=== PATIENT | female | born 1965 | race Caucasian/White ===

== ENCOUNTER → 2019-12-14 15:01 | Outpatient (BNVA) | payer MEDICARE, MEDICAID, SELFPAY | PROVIDERS: Family Provider Nurse Practitioner Family; PCP Nurse Practitioner Family; Visit Provider Orthopaedic Surgery | DX: M47.896 Other spondylosis, lumbar region (principal); M16.11 Unilateral primary osteoarthritis, right hip | CPT/HCPCS: 72100; 73502 ==

== ENCOUNTER 2019-12-27 17:08 | Outpatient (CLI) | payer MEDICARE, MEDICAID, SELFPAY ==
--- NOTE | 2019-12-27 17:30 | MR_ITS ---
WS: [id number] MRI LUMBAR SPINE NONCONTRAST HISTORY: back pain COMPARISON: None available. TECHNIQUE: Sagittal and axial multisequence imaging is submitted. Mild RIGHT convex curvature thoracic spine and LEFT convex curvature lumbar spine. L3 posterior subluxation by 2 mm. No acute marrow edema or fracture. Mild disc desiccation at L4-5 and L5-S1. Conus terminates normally at L1-2 disc level. L1-L2: Mild annular disc bulging. No stenosis. L2-L3: Moderate diffuse annular disc bulging and facet arthropathy. Small amount of fluid in the face t joints. No significant stenosis. L3-L4: Diffuse annular disc bulging with a RIGHT central and subarticular recess disc protrusion whic h is moderate. Disc protrusion is contacting the RIGHT L3 and L4 nerve roots. Associated annular fiss ure in the disc protrusion. Mild facet arthropathy bilaterally. L4-L5: Diffuse annular disc bulging and osteophytic ridging. Mild facet and ligamentum flavum arthrop athy. Vertebral body osteophytes causing mild subarticular foraminal stenosis. L5-S1: Annular disc bulging and osteophytic ridging. Small disc osteophyte contacts the RIGHT S1 nerv e root but does not displace it. Paravertebral soft tissues are normal. MR/MR lumbar spine wo con* [id number] IMPRESSION: 1. Moderate-sized RIGHT subarticular and foraminal disc protrusion at L3-4 wit h contact on the RIGHT L3 and L4 nerve roots. 2. Small disc osteophyte complex minimally contacts the RIGHT S1 nerve root. 3. Mild subarticular recess stenosis at L4-5.
== END 2019-12-27 17:09 | disposition home or self-care (01) ==
PROVIDERS: Family Provider Nurse Practitioner Family; PCP Nurse Practitioner Family; Visit Provider Orthopaedic Surgery
DX: M51.26 Other intervertebral disc displacement, lumbar region (principal); M25.78 Osteophyte, vertebrae; M48.061 Spinal stenosis, lumbar region without neurogenic claudication; M54.5 Low back pain
CPT/HCPCS: 72148

== ENCOUNTER → 2020-01-17 14:18 | Outpatient (BNVA) | payer MEDICARE, MEDICAID, SELFPAY | PROVIDERS: Family Provider Nurse Practitioner Family; PCP Nurse Practitioner Family; Visit Provider Nurse Practitioner Family | DX: N39.41 Urge incontinence (principal); Z86.69 Personal history of other diseases of the nervous system and sense organs | CPT/HCPCS: 81001 ==

== ENCOUNTER → 2020-01-25 07:56 | Outpatient (BNVA) | payer MEDICARE, MEDICAID, SELFPAY | PROVIDERS: Family Provider Nurse Practitioner Family; PCP Nurse Practitioner Family; Visit Provider Psychiatry & Neurology Psychiatry | DX: F17.210 Nicotine dependence, cigarettes, uncomplicated (principal); F33.0 Major depressive disorder, recurrent, mild | CPT/HCPCS: 99214 ==

== ENCOUNTER 2020-04-19 15:23 | Outpatient (CLI) | payer MEDICARE, MEDICAID, SELFPAY ==
--- NOTE | 2020-04-19 15:45 | XR_ITS ---
WS: [id number] LATERAL LUMBAR SPINE: 3 view. Lateral radiographs are performed in upright neutral, flexion and extension to the patient's toleranc e. HISTORY: Low back pain COMPARISON: 12/14/2019 L2 and L3 retrolisthesis by 3 mm. With flexion and extension there is no significant instability. Mod erate disc space narrowing at L3-4 and L4-5. No fractures. XR/XR lumbar spine f/e only [id number] IMPRESSION: No lumbar spine instability.
== END 2020-04-19 15:24 | disposition home or self-care (01) ==
LOC: RADWPI 15:27
PROVIDERS: Family Provider Nurse Practitioner Family; PCP Nurse Practitioner Family; Visit Provider Licensed Practical Nurse
DX: M54.5 Low back pain (principal)
CPT/HCPCS: 72120

== ENCOUNTER → 2020-05-11 09:32 | Outpatient (BNVA) | payer MEDICARE, MEDICAID, SELFPAY | PROVIDERS: Family Provider Nurse Practitioner Family; PCP Nurse Practitioner Family; Referring Provider Licensed Practical Nurse; Visit Provider Anesthesiology Pain Medicine | DX: M51.17 Intervertebral disc disorders with radiculopathy, lumbosacral region (principal); M54.9 Dorsalgia, unspecified | CPT/HCPCS: 99204 ==

== ENCOUNTER → 2020-05-17 13:41 | Outpatient (BNVA) | payer MEDICARE, MEDICAID, SELFPAY | PROVIDERS: Family Provider Nurse Practitioner Family; PCP Nurse Practitioner Family; Visit Provider Anesthesiology Pain Medicine | DX: M47.816 Spondylosis without myelopathy or radiculopathy, lumbar region (principal); M54.9 Dorsalgia, unspecified | CPT/HCPCS: 64493; 64494; 64495 ==

== ENCOUNTER → 2020-05-31 10:57 | Outpatient (BNVA) | payer MEDICARE, MEDICAID, SELFPAY | PROVIDERS: Family Provider Nurse Practitioner Family; PCP Nurse Practitioner Family; Visit Provider Anesthesiology Pain Medicine | DX: M47.816 Spondylosis without myelopathy or radiculopathy, lumbar region (principal); M51.17 Intervertebral disc disorders with radiculopathy, lumbosacral region; M54.9 Dorsalgia, unspecified | CPT/HCPCS: 99213 ==

== ENCOUNTER → 2020-07-18 08:18 | Outpatient (BNVA) | payer MEDICARE, MEDICAID, SELFPAY | PROVIDERS: Family Provider Nurse Practitioner Family; PCP Nurse Practitioner Family; Visit Provider Psychiatry & Neurology Psychiatry | DX: F33.42 Major depressive disorder, recurrent, in full remission (principal); F17.210 Nicotine dependence, cigarettes, uncomplicated | CPT/HCPCS: 99213 ==